=== PATIENT | male | born 2000 | race Caucasian/White ===

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

== ENCOUNTER 2022-09-03 01:28 | Inpatient (IN) | payer MEDICAID, OTHER ==
--- NOTE | 2022-09-03 01:40 | ED ---
Psych HPI - General Chief Complaint: Psychiatric Symptoms Stated Complaint: Mental health Time Seen by Provider: 09/03/22 01:39 Source: patient, RN notes reviewed, old records reviewed Mode of arrival: ambulatory - History of Present Illness Initial Comments: This is a 22-year-old male DF for evaluation. Patient Dese for significant mental health issues depression and anxiety. Patient coming in for psychiatric evaluation MD Complaint: suicidal ideation, feels depressed -: unknown Associated Psychiatric Symptoms: depression, suicidal ideation History of same: Yes Quality: constant Improves With: none Worsens With: none Associated Symptoms: denies other symptoms Treatments Prior to Arrival: placed on mental health hold If Self Harm: admits thoughts of self harm - Related Data Home Medications Medication Instructions Recorded Confirmed Citalopram Hydrobromide [CeleXA] 20 mg PO DAILY 06/08/14 06/08/14 Melatonin 3 mg PO HS 06/08/14 06/08/14 Methylphenidate HCl [Ritalin] 10 mg PO AC-TID 06/08/14 06/08/14 Mirtazapine [Remeron] 45 mg PO HS 06/08/14 06/08/14 OXcarbazepine [Trileptal] 600 mg PO BID 06/08/14 06/08/14 guanFACINE HCL [Intuniv] 1 tab PO DAILY 06/08/14 06/08/14 Previous Rx's Medication Instructions Recorded clindamycin HCL [Clindamycin HCl] 300 mg PO TID #30 cap 05/30/19 Allergies Allergy/AdvReac Type Severity Reaction Status Date / Time risperidone Allergy Swelling Verified 09/03/22 01:38 aripiprazole [From Abilify] AdvReac Unknown Verified 09/03/22 01:38 chlorpromazine HCl AdvReac Unknown Verified 09/03/22 01:38 [From Thorazine] divalproex sodium AdvReac Unknown Verified 09/03/22 01:38 [From Depakote] Penicillins AdvReac Unknown Verified 09/03/22 01:38 trazodone AdvReac Unknown Verified 09/03/22 01:38 ziprasidone HCl [From Geodon] AdvReac Unknown Verified 09/03/22 01:38 ziprasidone mesylate AdvReac Unknown Verified 09/03/22 01:38 [From Geodon] Review of Systems ROS Statement: Those systems with pertinent positive or pertinent negative responses have been documented in the HPI. ROS Other: All systems not noted in ROS Statement are negative. Past Medical History Past Medical History: No Reported History Additional Past Medical History / Comment(s): no meth for 1 year History of Any Multi-Drug Resistant Organisms: MRSA Date of last positivie culture/infection: 05/30/19 MDRO Source:: ABDOMEN Past Surgical History: Adenoidectomy, Ear Surgery, Tonsillectomy Past Psychological History: ADD/ADHD Smoking Status: Current every day smoker Past Alcohol Use History: Occasional Past Drug Use History: Marijuana, Methamphetamine General Exam General appearance: alert, in no apparent distress Head exam: Present: atraumatic, normocephalic, normal inspection Eye exam: Present: normal appearance, PERRL, EOMI. Absent: scleral icterus, conjunctival injection, periorbital swelling ENT exam: Present: normal exam, mucous membranes moist Neck exam: Present: normal inspection. Absent: tenderness, meningismus, lymphadenopathy Respiratory exam: Present: normal lung sounds bilaterally. Absent: respiratory distress, wheezes, rales, rhonchi, stridor Cardiovascular Exam: Present: regular rate, normal rhythm, normal heart sounds. Absent: systolic murmur, diastolic murmur, rubs, gallop, clicks GI/Abdominal exam: Present: soft, normal bowel sounds. Absent: distended, tenderness, guarding, rebound, rigid Extremities exam: Present: normal inspection, full ROM, normal capillary refill. Absent: tenderness, pedal edema, joint swelling, calf tenderness Back exam: Present: normal inspection Neurological exam: Present: alert, oriented X3, CN II-XII intact Psychiatric exam: Present: normal affect, normal mood Skin exam: Present: warm, dry, intact, normal color. Absent: rash Course Vital Signs 09/03/22 01:36 Temperature 98.0 F Pulse Rate 83 Respiratory 16 Rate Blood Pressure 126/76 O2 Sat by Pulse 96 Oximetry - Reevaluation(s) Reevaluation #1: 09/03/22 06:57 Medical records reviewed Reevaluation #2: 09/03/22 06:57 Patient informed results questions have been answered Reevaluation #3: 09/03/22 06:57 Medical clear for psychiatric evaluation Medical Decision Making - Medical Decision Making 22 male D May for psychiatric evaluation and treatment - Lab Data Lab Results 09/03/22 09/03/22 Range/Units 04:00 04:00 Urine Opiates Screen Not Detected (NotDetected) Ur Oxycodone Screen Not Detected (NotDetected) Urine Methadone Screen Not Detected (NotDetected) Ur Propoxyphene Screen Not Detected (NotDetected) Ur Barbiturates Screen Not Detected (NotDetected) U Tricyclic Antidepress Not Detected (NotDetected) Ur Phencyclidine Scrn Not Detected (NotDetected) Ur Amphetamines Screen Not Detected (NotDetected) U Methamphetamines Scrn Not Detected (NotDetected) U Benzodiazepines Scrn Not Detected (NotDetected) Urine Cocaine Screen Not Detected (NotDetected) U Marijuana (THC) Screen Detected H (NotDetected) Coronavirus (PCR) Not Detected (Not Detectd) Disposition Clinical Impression: Acute anxiety, Depression, Suicidal ideation Disposition: TRANSFER TO PSYCH HOSP/UNIT Condition: Fair Is patient prescribed a controlled substance at d/c from ED?: No Time of Disposition: 07:00
[2022-09-03 04:40] LABS: Amphetamine Screen,Urine Not Detected (NotDetected); Barbiturate Screen,Urine Not Detected (NotDetected); Benzodiazepines Screen,Urine Not Detected (NotDetected); Cocaine Screen,Urine Not Detected (NotDetected); Methadone Screen, Urine Not Detected (NotDetected); Opiate Screen,Urine Not Detected (NotDetected); Oxycodone Screen, Urine Not Detected (NotDetected); Phencyclidine Screen,Urine Not Detected (NotDetected); Tricyclic Antidepressant,Urine Not Detected (NotDetected); Urn Cannabinoid Scrn Detected (NotDetected)
[2022-09-03] MEDS ORDERED: NICOTINE 21MG/24HR PATCH TRANSDERM STA (05:49)
[2022-09-03] MEDS ORDERED: MAG HYDROX/AL HYDROX/SIMETH 30 ML CUP PO PRN (07:05)
[2022-09-03] MEDS ORDERED: ACETAMINOPHEN TAB 325 MG TAB PO PRN (07:05)
[2022-09-03] MEDS ORDERED: MAGNESIUM HYDROXIDE 2,400 MG/10 ML CUP PO PRN (07:05)
[2022-09-03] MEDS ORDERED: HALOPERIDOL LACTATE 5 MG/ML 1 ML VIAL IM PRN (07:08)
[2022-09-03] MEDS ORDERED: LORazepam 2 MG/ML INJ IM PRN (07:10)
[2022-09-03] MEDS ORDERED: LORazepam 1 MG TAB PO PRN (07:12)
[2022-09-03] MEDS ORDERED: haloperidoL 5 MG TAB PO PRN (07:12)
[2022-09-03] MEDS: NICOTINE 21MG/24HR PATCH TRANSDERM SCH (09:05)
[2022-09-03] MEDS ORDERED: OLANZapine ODT 5 MG TAB PO STA (10:07)
[2022-09-03] MEDS ORDERED: FLUoxetine HCL 20 MG CAP PO STA (10:08)
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
[2022-09-03 12:16] LABS: HCT 47.7 % (39.0-53.0); MCH 30.8 pg (25.0-35.0); MCHC 33.6 g/dL (31.0-37.0); MCV 91.9 fL (80.0-100.0); Mean Platelet Volume 7.4; Platelet Count 287 k/uL (150-450); RBC 5.19 m/uL (4.30-5.90); RDW 13.1 % (11.5-15.5); WBC 7.3 k/uL (3.8-10.6)
[2022-09-03 13:40] LABS: ALT 20 U/L (4-49); AST 27 U/L (17-59); African American GFR (CKD) >90 (>60 ml/min/1.73 sqM); Albumin 5.1 g/dL (3.5-5.0); Alkaline Phosphatase 79 U/L (38-126); Anion Gap 11 mmol/L; Blood Urea Nitrogen 16 mg/dL (9-20); Calcium 9.6 mg/dL (8.4-10.2); Carbon Dioxide 25 mmol/L (22-30); Chloride 105 mmol/L (98-107); Glucose 95 mg/dL (74-99); Non-African American GFR(CKD) >90 (>60 ml/min/1.73 sqM); Potassium 4.4 mmol/L (3.5-5.1); Sodium 141 mmol/L (137-145); Total Bilirubin 1.7 mg/dL (0.2-1.3)
--- NOTE | 2022-09-03 15:30 | P.MDCNMH ---
History of Present Illness H&P Date: 09/03/22 Patient is a 22-year-old male with no significant past medical history presenting for major depression with psychotic features. [facility] has been consulted for medical management. He currently denies any chest pain, shortness of breath, abdominal pain, nausea, vomiting, diarrhea, constipation, or urinary complaints. He denies any other active medical problems. He curre ntly smokes about 2-3 packs of cigarettes per day, has not tried quitting. He denies any alcohol use, uses marijuana. Patient seen and examined at bedside. Pertinent positives and negatives as discussed in HPI, a complete review of systems was performed and all other systems are negative. Vital signs reviewed General: nontoxic, no distress, appears at stated age Derm: warm, dry Head: atraumatic, normocephalic, symmetric Eyes: EOMI, no lid lag, anicteric sclera, pupils equal round reactive to light ENT: Nose and ears atraumatic Neck: No thyromegaly, supple Mouth: no lip lesion, mucus membranes moist Cardiovascular: S1S2 reg, no murmur, no edema Lungs: clear to auscultation bilateral, no rhonchi, no rales, no wheeze, no accessory muscle use Abdominal: soft, nontender to palpation, no guarding, no appreciable organomegaly Ext: no gross muscle atrophy, muscle strength muscle strength 5 out of 5 in all 4 extremities, no contractures Neuro: CN II-XII grossly intact Psych: Alert, oriented, appropriate affect Assessment/Plan: Nicotine dependence -Counseled regarding smoking cessation -Currently on 21 mg 24-hour nicotine patch Major depression with psychotic features -Managed by psychiatry Thank you for allowing us to participate in the care of this pleasant patient. Do not hesitate to contact us with questions. Someone can be reached from the [facility] hospitalist group all hours of the day at [phone] or via [employer]. Past Medical History Past Medical History: No Reported History Additional Past Medical History / Comment(s): no meth for 1 year History of Any Multi-Drug Resistant Organisms: MRSA Date of last positivie culture/infection: 05/30/19 MDRO Source:: ABDOMEN Past Surgical History: Adenoidectomy, Ear Surgery, Tonsillectomy Past Anesthesia/Blood Transfusion Reactions: No Reported Reaction Past Psychological History: ADD/ADHD Smoking Status: Current every day smoker Past Alcohol Use History: Occasional Past Drug Use History: Marijuana, Methamphetamine Medications and Allergies Home Medications Medication Instructions Recorded Confirmed Type Citalopram Hydrobromide [CeleXA] 20 mg PO DAILY 06/08/14 06/08/14 History Melatonin 3 mg PO HS 06/08/14 06/08/14 History Methylphenidate HCl [Ritalin] 10 mg PO AC-TID 06/08/14 06/08/14 History Mirtazapine [Remeron] 45 mg PO HS 06/08/14 06/08/14 History OXcarbazepine [Trileptal] 600 mg PO BID 06/08/14 06/08/14 History guanFACINE HCL [Intuniv] 1 tab PO DAILY 06/08/14 06/08/14 History clindamycin HCL [Clindamycin HCl] 300 mg PO TID #30 cap 05/30/19 Rx Allergies Allergy/AdvReac Type Severity Reaction Status Date / Time risperidone Allergy Swelling Verified 09/03/22 01:38 aripiprazole [From Abilify] AdvReac Unknown Verified 09/03/22 01:38 chlorpromazine HCl AdvReac Unknown Verified 09/03/22 01:38 [From Thorazine] divalproex sodium AdvReac Unknown Verified 09/03/22 01:38 [From Depakote] Penicillins AdvReac Unknown Verified 09/03/22 01:38 trazodone AdvReac Unknown Verified 09/03/22 01:38 ziprasidone HCl [From Geodon] AdvReac Unknown Verified 09/03/22 01:38 ziprasidone mesylate AdvReac Unknown Verified 09/03/22 01:38 [From Geodon] Physical Exam Vitals: Vital Signs Temp Pulse Pulse Resp BP BP Pulse Ox 09/03/22 07:30 97.6 F 85 18 133/73 98 09/03/22 01:36 98.0 F 83 16 126/76 96 Intake and Output 09/03/22 09/03/22 09/03/22 06:59 14:59 22:59 Other: Weight 81.647 kg 69.5 kg Cranial Nerve Examination - Cranial Nerves Cranial Nerve II- Optic: Intact Cranial Nerve III- Oculomotor: Intact Cranial Nerve IV- Trochlear: Intact Cranial Nerve V- Trigeminal: Intact Cranial Nerve - Abducens: Intact Cranial Nerve VII- Facial: Intact Cranial Nerve VIII- Auditory: Intact Cranial Nerve IX- Glossopharyngeal: Intact Cranial Nerve X- Vagus: Intact Cranial Nerve XI- Accessory: Intact Cranial Nerve XII- Hypoglossal: Intact Results CBC & Chem 7: 09/03/22 11:43 09/03/22 11:43 Labs: Abnormal Lab Results - Last 24 Hours (Table) 09/03/22 09/03/22 Range/Units 04:00 11:43 Total Bilirubin 1.7 H (0.2-1.3) mg/dL Albumin 5.1 H (3.5-5.0) g/dL U Marijuana (THC) Screen Detected H (NotDetected)
[2022-09-03 18:45] LABS: Chol/HDL Ratio 2.28 Ratio; LDL Cholesterol,Calculated 45.5 mg/dL (0.0-131.0); VLDL Calculation 16.16 mg/dL (5.00-40.00)
[2022-09-03] MEDS: OLANZapine ODT 5 MG TAB PO SCH (20:04)
[2022-09-04] MEDS: OLANZapine ODT 5 MG TAB PO SCH ×2 (08:22→20:28)
[2022-09-04] MEDS: NICOTINE 21MG/24HR PATCH TRANSDERM SCH ×2 (08:22→16:30)
[2022-09-04] MEDS: FLUoxetine HCL 10 MG CAP PO SCH (08:23)
--- NOTE | 2022-09-04 11:15 | P.PN ---
Progress Note - Text Progress Note Date: 09/04/22 Interval History: Patient was seen wandering the hallways and was directable and agreeable to speak with sql report writer in the office. The patient is currently not reporting any suicidal or homicidal ideation, intention, and/or plan. He reports that he misses his girlfriend severely. He states that she was able to visit them last night. He is however denying any anger or mood swings. He reports no racing thoughts. He denies any auditory or visual hallucinations. He denies any paranoia or other delusions. He has been in here with his medication but reports mild sedation as a side effect. He however does not want to switch his Zyprexa to just bedtime as she feels like it helps him control his anger. Mental Status Exam: General Appearance: Patient appears to be stated age is alert, directable, and cooperative. Behavior: Patient is calmly seated without any agitated behavior. Speech: Patient's speech is fluent and nonpressured. Mood/Affect: Mood is improving mildly, affect is congruent and constricted. Suicidality/Homicidality: Patient denies having any suicidal or homicidal ideation intent or plan. Perceptions: Patient denies any visual hallucinations and denies any auditory hallucinations Though content/process: There is no evidence of any delusional thought content and thought process is linear and goal-directed. Memory and concentration: AOX3, grossly intact for the purposes of this session Judgment and insight: Improving mildly Vital Signs Temp 98.3 F 09/04/22 06:34 Pulse 49 L 09/04/22 06:34 Resp 14 09/04/22 06:34 BP 84/42 09/04/22 06:34 Pulse Ox 98 09/03/22 07:30 FiO2 Intake & Output 09/03/22 09/04/22 09/04/22 18:59 06:59 18:59 Weight 69.5 kg Laboratory Results - Last 24 Hours 09/03/22 09/03/22 09/03/22 11:43 11:43 11:43 WBC 7.3 RBC 5.19 Hgb 16.0 Hct 47.7 MCV 91.9 MCH 30.8 MCHC 33.6 RDW 13.1 Plt Count 287 MPV 7.4 Sodium 141 Potassium 4.4 Chloride 105 Carbon Dioxide 25 Anion Gap 11 BUN 16 Creatinine 0.95 Est GFR (CKD-EPI)AfAm >90 Est GFR (CKD-EPI)NonAf >[address] Glu mg/dL 110 Hemoglobin A1c 5.5 Calcium 9.6 Total Bilirubin 1.7 H AST 27 ALT 20 Alkaline Phosphatase 79 Total Protein 8.0 Albumin 5.1 H Triglycerides 80.80 Cholesterol 110.00 LDL Cholesterol, Calc 45.5 VLDL Cholesterol, Calc 16.16 HDL Cholesterol 48.30 Cholesterol/HDL Ratio 2.28 TSH 1.130 Assessment Major Depressive Disorder, reccurrent, severe, with psychotic features Complicated Bereavement Tobacco Use Disorder Cannabis Use Disorder Methamphetamine use disorder, in remission Homeless Intellectual Disability Plan: -Patient continues to meet criteria for inpatient psychiatric admission for symptom stabilization and safety. Patient has signed adult voluntary form and medication consent and was placed in patient's chart. -Medications: Prozac 30 mg daily for depression Zyprexa 5 mg ODT twice daily for mood stabilization/depression/psychosis. -When necessary Ativan and Haldol for agitation/aggression. Vistaril PRN for anxiety. -NRT - nicotine patch -SW on board for discharge planning. Encouraged the patient to participate in milieu.
[2022-09-04] MEDS: hydrOXYzine pamoate 25 MG CAP PO PRN (20:52)
[2022-09-05] MEDS: NICOTINE 21MG/24HR PATCH TRANSDERM SCH (08:56)
[2022-09-05] MEDS: FLUoxetine HCL 10 MG CAP PO SCH (08:56)
[2022-09-05] MEDS: OLANZapine ODT 5 MG TAB PO SCH ×2 (08:56→20:35)
--- NOTE | 2022-09-05 11:19 | P.PN ---
Progress Note - Text Progress Note Date: 09/05/22 Interval History: Patient was seen wandering the hallways and was directable and agreeable to speak with group underwriter in the office. The patient is currently not reporting any suicidal or homicidal ideation, intention, and/or plan. He reports no auditory or visual hallucinations. He states his anger and mood swings appear to be better controlled. He reports that the medication is more tolerable and he is less tired. He denies any medical issues or concerns. He is anticipating discharge thursday. Mental Status Exam: Grossly unchanged General Appearance: Patient appears to be stated age is alert, directable, and cooperative. Behavior: Patient is calmly seated without any agitated behavior. Speech: Patient's speech is fluent and nonpressured. Mood/Affect: Mood is improving mildly, affect is congruent and constricted. Suicidality/Homicidality: Patient denies having any suicidal or homicidal ideation intent or plan. Perceptions: Patient denies any visual hallucinations and denies any auditory hallucinations Though content/process: There is no evidence of any delusional thought content and thought process is linear and goal-directed. Memory and concentration: AOX3, grossly intact for the purposes of this session Judgment and insight: Improving mildly Vital Signs Temp 98.3 F 09/04/22 06:34 Pulse 49 L 09/04/22 06:34 Resp 14 09/04/22 06:34 BP 84/42 09/04/22 06:34 Pulse Ox 98 09/03/22 07:30 FiO2 Assessment Major Depressive Disorder, reccurrent, severe, with psychotic features Complicated Bereavement Tobacco Use Disorder Cannabis Use Disorder Methamphetamine use disorder, in remission Homeless Intellectual Disability Plan: -Patient continues to meet criteria for inpatient psychiatric admission for symptom stabilization and safety. Patient has signed adult voluntary form and medication consent and was placed in patient's chart. -Medications: Prozac 30 mg daily for depression Decrease Zyprexa to 5 mg ODT at bedtime for mood and anger. Concern for hypotension and bradycardia. -When necessary Ativan and Haldol for agitation/aggression. Vistaril PRN for anxiety. -NRT - nicotine patch -SW on board for discharge planning. Encouraged the patient to participate in milieu.
[2022-09-06] MEDS: FLUoxetine HCL 10 MG CAP PO SCH (08:47)
[2022-09-06] MEDS: NICOTINE 21MG/24HR PATCH TRANSDERM SCH (08:47)
--- NOTE | 2022-09-06 14:36 | P.PN ---
Progress Note - Text Progress Note Date: 09/06/22 Interval history: Patient was seen attending lunch and was directable and agreeable to speak with curriculum writer. He reports he is feeling better and happier on the Prozac. He appears to have difficulty understanding why his Zyprexa 5 mg BID was changed to Zyprexa 5 mg QHS, and he was provided with psychoeducation about his medications and that his Zyprexa was lowered by the primary team due to his blood pressure being a bit low. Vitals reviewed from today and are stable: BP 135/66 and HR 73. He was allowed to ask questions and his questions were answered. At this time, patient denies any suicidal or homicidal ideation, intent or plan. Denies any auditory or visual hallucinations. Patient denies any side effects from the medications and has been compliant with meds. Mental status exam: General Appearance: Patient appears to be stated age, slender male with facial hair Behavior: No agitated behavior. Patient is calm and directable. Speech: Patient's speech is fluent, soft tone and non-pressured. Mood/Affect: Mood is "happier", affect is congruent and constricted, appears a bit anxious. Suicidality/Homicidality: Patient denies having any suicidal or homicidal ideation intent or plan. Perceptions: Patient denies any auditory or visual hallucinations. Though content/process: There is no evidence of any delusional thought content and thought process is concrete. Memory and concentration: AOX3, grossly intact for the purposes of this session Judgment and insight: improving mildly Assessment/Plan: Continue with current diagnosis. Patient continues to meet criteria for inpatient psychiatric admission for symptom stabilization and safety. Patient will be maintained on current psychotropic medication regimen. Monitor for medication compliance and for any psychotropic medication side effects. Will continue to monitor ongoing response to treatment. Encouraged participation in milieu.
[2022-09-06] MEDS: OLANZapine ODT 5 MG TAB PO SCH (20:31)
[2022-09-07] MEDS: NICOTINE 21MG/24HR PATCH TRANSDERM SCH (09:03)
[2022-09-07] MEDS: FLUoxetine HCL 10 MG CAP PO SCH (09:04)
[2022-09-07] MEDS: hydrOXYzine pamoate 25 MG CAP PO PRN (19:18)
[2022-09-07] MEDS: OLANZapine ODT 5 MG TAB PO SCH (20:11)
--- NOTE | 2022-09-07 22:43 | P.PN ---
Progress Note - Text Progress Note Date: 09/07/22 Interval history: Patient was seen tearful in his room talking to his roommate and was directable and agreeable to speak with story writer. He reports he is "emotional" because he wants to be discharged and go home to see his . He is looking forward to discharge tomorrow. Supportive psychotherapy provided and patient responded well to reassurance. He was allowed to ask questions and his questions were answered. At this time, patient denies any suicidal or homicidal ideation, intent or plan. Denies any auditory or visual hallucinations. Patient denies any side effects from the medications and has been compliant with meds. Mental status exam: General Appearance: Patient appears to be stated age, slender male with facial hair Behavior: No agitated behavior. Patient is directable, tearful about missing family. Speech: Patient's speech is fluent, soft tone and non-pressured. Mood/Affect: Mood is "emotional", affect is tearful but improves with reassurance. Suicidality/Homicidality: Patient denies having any suicidal or homicidal ideation intent or plan. Perceptions: Patient denies any auditory or visual hallucinations. Though content/process: There is no evidence of any delusional thought content and thought process is concrete. Memory and concentration: AOX3, grossly intact for the purposes of this session Judgment and insight: improving mildly Assessment/Plan: Continue with current diagnosis. Patient continues to meet criteria for [facility] psychiatric admission for symptom stabilization and safety. Patient will be maintained on current psychotropic medication regimen. Monitor for medication compliance and for any psychotropic medication side effects. Will continue to monitor ongoing response to treatment. Encouraged participation in milieu.
[2022-09-07 23:15] VITALS: BP 136/84; PULSE 66; RESP 16; TEMP 97.8
[2022-09-08] MEDS: NICOTINE 21MG/24HR PATCH TRANSDERM SCH (08:29)
[2022-09-08] MEDS: FLUoxetine HCL 10 MG CAP PO SCH (08:29)
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
== END 2022-09-08 15:03 | disposition home or self-care (01) | DRG 751 ==
LOC: EC 01:28 → 3MHU 06:53
PROVIDERS: ADMIT Psychiatry & Neurology Psychiatry; ATTEND Psychiatry & Neurology Psychiatry
DX: F33.3 Major depressive disorder, recurrent, severe with psychotic symptoms (principal); R45.851 Suicidal ideations; F79 Unspecified intellectual disabilities; F17.210 Nicotine dependence, cigarettes, uncomplicated; F90.9 Attention-deficit hyperactivity disorder, unspecified type; F15.91 Other stimulant use, unspecified, in remission; F43.81 Prolonged grief disorder; R62.50 Unspecified lack of expected normal physiological development in childhood; Z20.822 Contact with and (suspected) exposure to COVID-19; Z62.810 Personal history of physical and sexual abuse in childhood; Z86.14 Personal history of Methicillin resistant Staphylococcus aureus infection; Z88.8 Allergy status to other drugs, medicaments and biological substances; Z88.0 Allergy status to penicillin; Z79.899 Other long term (current) drug therapy; Z56.0 Unemployment, unspecified; Z59.00 Homelessness unspecified; Z63.79 Other stressful life events affecting family and household; Z91.51 Personal history of suicidal behavior
CPT/HCPCS: 80053; 80061; 80306; 82075; 83036; 84443; 85027; 87635

== ENCOUNTER 2023-08-28 01:03 | Emergency (ER) | payer MEDICAID, OTHER ==
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
[2023-08-28 01:33] VITALS: BP 127/72; PULSE 96; RESP 20; TEMP 98
[2023-08-28] MEDS ORDERED: GELATIN SPONGE,ABSORB (SMALL) 1 EACH SPONGE TOPICAL STA (01:33)
[2023-08-28] MEDS ORDERED: TOPICAL SKIN ADHESIVE 1 EACH AMP TOPICAL ONE ×2 (01:41)
[2023-08-28] MEDS ORDERED: CEPHALEXIN 500MG STARTER PACK 4 CAP BTL PO STA (01:41)
== END 2023-08-28 01:51 | disposition home or self-care (01) ==
LOC: EC 01:03
DX: S61.216A Laceration without foreign body of right little finger without damage to nail, initial encounter (principal); S00.83XA Contusion of other part of head, initial encounter; S60.456A Superficial foreign body of right little finger, initial encounter; F17.200 Nicotine dependence, unspecified, uncomplicated; F12.90 Cannabis use, unspecified, uncomplicated; F15.90 Other stimulant use, unspecified, uncomplicated; Z86.59 Personal history of other mental and behavioral disorders; Z88.0 Allergy status to penicillin; Z88.5 Allergy status to narcotic agent; Z88.6 Allergy status to analgesic agent; Z88.8 Allergy status to other drugs, medicaments and biological substances; W22.09XA Striking against other stationary object, initial encounter
CPT/HCPCS: 10120; 99283